=== PATIENT | female | born 1990 | race Caucasian/White ===

== ENCOUNTER 2016-07-15 01:06 | Emergency (ER) | payer OTHER ==
--- NOTE | 2016-07-15 03:10 | ED NURSING NOTES ---
Clinical Report - Nurses [facility] [address] [place] [address] 07/15/2016 1:09 Patient: DOMINIQUE TOWNSEND TRIAGE Triage time 01:12. Acuity: LEVEL 3. Chief Complaint: SPOTTING. --01:17 Dorinda Rose. 01:12 07/15/16. BP: 121/76. HR: 81. RR: 16. O2 saturation: 100%. Temp: 98.7 F. Pain level now: 0/10. --01:17 Dorinad Rose. Weight: 55.3 kg. Height/Length: 64 inches. BMI: 20.9. --01:16 Stefan Rose.N. Medications Vitamins Oral. --01:14 Gemini RoseN. Allergies Sulfa Antibiotics. --01:15 Dorinda Rose. History Arrived by private vehicle. Historian: patient. Accompanied by family. This started just prior to arrival. ( pt also complains of lower back pain). Treatment EDITOR AT LARGE: None. PAST MEDICAL HX: Immunizations: up-to-date. Currently : May 31. OB history: G 3; P 2. SOCIAL HX: Smoker- current status unknown. No alcohol use or drug use. No infectious disease exposure. FALL RISK ASSESSMENT: Fall risk assessment completed. No fall risk identified. NUTRITIONAL RISK ASSESSMENT: The nutritional risk assessment revealed no deficiencies. FUNCTIONAL ASSESSMENT: Functional assessment: no impairments noted. LEARNING NEEDS ASSESSMENT: The learning needs assessment revealed no barriers. SKIN INTEGRITY ASSESSMENT: Skin integrity risk assessment completed. No skin integrity risk identified. --01:17 Dorinda Rose. PROBLEMS: Reflux. --01:15 Gemini RoseN. ADDITIONAL SURGERIES: no known surgeries. Interventions ID band on patient. To treatment room. --01:17 Dorinda Rose. PHYSICAL ASSESSMENT GENERAL / NEURO / PSYCH: Alert. Oriented X 4. Appears in no acute distress. HEENT: Mucous membranes are pink. RESPIRATORY: Respirations not labored. Breath sounds within normal limits. CVS: Normal heart rate and rhythm. Capillary refill less than 2 seconds. GI / : Abdomen soft and nontender. Bowel sounds within normal limits. Vaginal bleeding present. EXTREMITIES: No lower extremity edema. SKIN: Skin is warm and dry. --01:17 Christine Rose NURSING PROGRESS NOTES 01:29 07/15/2016 Site #1 started via IV in the right antecubital space with an 20g angiocath, with aseptic technique and good blood return; one attempt. Blood drawn: rainbow set. Labeled in the presence of the patient and sent to the lab. Saline lock flushed. --01:29 Christine Rose The initial plan of care for this patient has been created This plan of care was discussed with the patient. Patient gowned. Warming measures: blanket applied. Reassurance given to the patient. PELVIC EXAM: Pelvic exam performed by ED physician. Assisted by one nurse. Preparation: pelvic tray and culture medium; patient placed in lithotomy position. Procedure: speculum and bimanual exam. Light amount of bright red vaginal bleeding noted. Specimens collected and sent to lab: GC, chlamydia and wet prep. No genital lesions noted. No rectal exam performed. Status post-procedure: she was stable and no complications were noted. Total time of assist / procedure: 15 minutes. Two patient identifiers checked. Call light placed in reach. Side rails up x 2. Bed placed in lowest position. Brakes of bed on. --01:40 Wally Aden R.N. ( Ultrasound at bedside.). --02:40 Wally Aden R.N. DISPOSITION / DISCHARGE 03:17 07/15/2016 Site #1 removed upon discharge. Catheter intact. Bandaid applied. --03:17 Christine Rose Departure time: 03:19. Condition at departure: stable. No learning barriers present. Discharge instructions provided and reviewed with the patient. Reviewed warnings. Reviewed medication(s) side effects, precautions, dosing and course information. Prescription(s) given to the patient. Treatments reviewed. Reviewed referrals. Follow up contact number. Patient verbalized understanding. Written instructions provided in Faroese. No diet instructions, activity restrictions or stop smoking instructions. No work note given or school note given. The patient was discharged by the physician. She was discharged home and accompanied by child nutrition director. She left the Emergency Department ambulatory and via private vehicle. Information Systems Project Manager driving. FALL RISK ASSESSMENT: Fall risk assessment completed. No fall risk identified. --03:20 Christine Rose 03:17 07/15/16. BP: 123/78. HR: 88. RR: 20. O2 saturation: 99%. Temp: 98.6 F. Pain level now: 0/10. --03:20 Christine Rose Locked/Released at 07/15/2016 3:20 by Christine Rose
--- NOTE | 2016-07-15 03:10 | ED CLINICAL REPORT ---
Clinical Report - Physicians/Mid Levels [facility] [address] [place] [place] [address] 07/15/2016 1:09 Patient: DOMINIQUE TOWNSEND Time Seen: 0112. Arrived- By private vehicle. HISTORY OF PRESENT ILLNESS Chief Complaint: VAGINAL BLEEDING. This started today. She has had vaginal bleeding. Is still present. It was abrupt in onset and has been constant but is not gone now. No pelvic pain, complaint of leakage of fluid or vaginal discharge. Gestational age is weeks, (5 weeks). (). Similar symptoms previously: None. Recent medical care: Not recently seen/assessed. REVIEW OF SYSTEMS No skin rash. All systems otherwise negative, except as recorded above. PAST HISTORY See nurses notes. SOCIAL HISTORY Never smoker. No alcohol use or drug use. No recent travel. Is a local resident. FAMILY HISTORY (no family history of bleeding problems). ADDITIONAL NOTES The nursing notes have been reviewed. PHYSICAL EXAM Vital Signs: 07/15/2016 01:12 BP: 121/76. HR: 81. RR: 16. O2 saturation: 100%. Temp: 98.7 F. Pain level now: 0/10. Appearance: Alert. Oriented X3. No acute distress. CVS: Heart sounds normal. Respiratory: No respiratory distress. Breath sounds normal. Chest nontender. Abdomen: Soft and nontender. Bowel sounds normal. No organomegaly. No mass. Pelvic: (Pelvic exam performed with Margie ARTHUR at all times. Exam was remarkable for small amount of dark red blood in the posterior vaginal vault. No active bleeding. No masses. No lesions. Normal-appearing cervix. Cervical os is closed. No cervical motion tenderness. No adnexal tenderness or masses. Normal-appearing external female genitalia.). Skin: Skin warm and dry. Normal skin color. No rash. Normal skin turgor. Extremities: Extremities nontender. No pathologic edema. LABS, X-RAYS, AND EKG Pelvic Sonogram: Adnexa normal. No free fluid. small gestational sac. No other acute findings. No uterine fibroid. The study was independently viewed by me and interpreted contemporaneously by me. Laboratory Tests: UA-Culture if indicated: (TIESHA: 07/15/2016 01:13) ( MsgRcvd 07/15/2016 01:40) Final results Test Result Flag Units (Reference) URINE COLOR YELLOW URINE APPEARANCE SLIGHTLY HAZY URINE GLUCOSE NEGATIVE (NEGATIVE) URINE BILIRUBIN NEGATIVE (NEGATIVE) URINE KETONE NEGATIVE (NEGATIVE) URINE SPECIFIC GRAVITY 1.025 (1.010-1.030) URINE PH 6.0 (5.0-8.0) URINE PROTEIN NEGATIVE (NEGATIVE) URINE UROBILINOGEN 0.2 EU/dL (0.2-1.0) URINE NITRITE NEGATIVE (NEGATIVE) URINE BLOOD 3+ (NEGATIVE) URINE LEUK ESTERASE NEGATIVE (NEGATIVE) URINE RBC 5-10 rbc/hpf (0-1) URINE WBC 1-3 wbc/hpf (0-1) URINE EPITHELIAL CELLS 1-3 EPI/hpf (0-5) URINE BACTERIA TRACE (<1+) (NONE SEEN) URINE COMMENT CULT NOT INDICATED URINE CULTURES ARE SET-UP BASED ON THE FOLLOWING CRITERIA:POSITIVE NITRITEPOSITIVE LEUKOCYTE ESTERASEGREATER THAN 10 WHITE BLOOD CELLSMODERATE (2+) OR GREATER BACTERIA CBC w Diff: (TIESHA: 07/15/2016 01:28) ( [facility] 07/15[place] 01:32) Final results Test Result Flag Units (Reference) WHITE BLOOD COUNT 13.5 H K/uL (4.5-11.5) RED BLOOD COUNT 4.30 M/uL (4.00-5.20) HEMOGLOBIN 13.1 gm/dL (12.0-16.0) HEMATOCRIT 39.2 % (36.0-46.0) MEAN CELL VOLUME 91 fL (80-100) MEAN CORPUSCULAR HGB 31 pg (26-34) MEAN CORPUSCULAR HGB CONC 34 g/dL (31-37) RED CELL DISTRIBUTION WIDTH 13.1 % (11.6-14.8) PLATELET COUNT 245 K/uL (150-400) NEUTROPHIL % 55.0 % (50-75) LYMPH % 35.3 % (25-40) MONO % 7.3 % (3-14) EOSINOPHIL % 2.0 % (0-4) BASOPHIL % 0.4 % (0-2) CMP: (TIESHA: 07/15/2016 01:28) ( MsgRcvd 07/15/2016 01:56) Final results Test Result Flag Units (Reference) GLUCOSE 95 mg/dL (70-110) BUN 11 mg/dL (7-18) CREATININE 0.8 mg/dL (0.6-1.3) Estimated GFR >60 mL/min Estimated GFR- >60 mL/min Note: Persistent reduction over 3 months in eGFR<60 mL/min/1.73 m2 defines CKD. Patients with eGFR values>=60 mL/min/1.73 m2 may also have CKD if evidence ofpersistent proteinuria. Additional information may be foundat www.kidney.org. SODIUM 140 mmol/L (136-145) POTASSIUM 3.9 mmol/L (3.5-5.1) CHLORIDE 105 mmol/L (98-107) CARBON DIOXIDE 30 mmol/L (21-32) CALCIUM 9.2 mg/dL (8.5-10.1) TOTAL PROTEIN 7.3 g/dL (6.4-8.2) ALBUMIN 3.9 g/dL (3.3-5.0) BILIRUBIN, TOTAL 0.2 mg/dL (0.0-1.0) ALKALINE PHOSPHATASE 51 U/L (46-116) AST (SGOT) 19 U/L (15-37) ALT (SGPT) 27 U/L (12-78) BETA HCG, QUANTITATIVE 742 mIU/mL REFERENCE RANGE:Adult Males: <2 mIU/mLNon- Females: <6 mIU/mL Females:Approximate Approximate hCGGestational Age Range (mIU/mL) 0-1 week 0-501-2 weeks 40-3002-3 weeks 100-83280-5 weeks 500-54282-7 months 5,000-200,0002-3 months 10,000-100,0002nd trimester 3,000-50,0003rd trimester 1,000-50,000 Wet Prep: (TIESHA: 07/15/2016 01:39) ( [facility] 07/15/2016 02:06) Final results SPECIMEN DESCRIPTION: MUCUS, DARK BLOOD Test Result Flag Units (Reference) WET MOUNT CLUE CELLS:: NONE EPITHELIAL CELLS: FEW -- SOURCE?: VAGINAL WHITE BLOOD CELLS: RARE TRICHOMONAS:: NONE -- YEAST:: NONE Type & Rh: (TIESHA: 07/15/2016 01:28) ( MsgRcvd 07/15/2016 01:55) Final results Test Result Flag Units (Reference) PATIENT BLOOD TYPE A Positive . PROGRESS AND PROCEDURES Course of Care: The patient is a pleasant 25-year-old female presenting for evaluation of abnormal vaginal bleeding. Patient reports that she has a positive test recently. Patient has not been able to follow up with the EVENT EXECUTIVE yet. Patient reports vaginal bleeding today. No other acute abnormalities noted. No pain. Examination is remarkable for vaginal bleeding. Studies have been ordered. Patient is agreeable to treatment plan. patient wishes to be at this time. And wants to carry on with the . Patient's laboratory results and ultrasound results are noted for the findings above. At this time differential diagnosis includes threatened versus inevitable . Unable to see pole or any significant findings on examination. Patient without adnexal tenderness or adnexal masses. Low suspicion for ectopic at this time. I discussion patient in regards to ectopic and for warning signs. Also discussed with patient the chance of a spontaneous jesus potential normal . Patient is to follow-up with her EVENT EXECUTIVE for further management and evaluation of her . Patient had became tearful whenI had informed the patient of the potential for spontaneous . Urged patient to follow up with her EVENT EXECUTIVE for further management and all of ultrasound as well as repeat beta hCG. Patient and patient's significant other had expressed understanding of these instructions. And the buttocks provided for urinary tract infection. All questions have been answered. The patient expressed understanding of these instructions and was agreeable to them. Do not feel patient needs be admitted to the hospital or require further emergency department workup/evaluation. Disposition: Discharged. Condition: good. CLINICAL IMPRESSION 07/15/2016 01:12 BP: 121/76. HR: 81. RR: 16. O2 saturation: 100%. Temp: 98.7 F. Pain level now: 0/10. Blood pressure normal. Oxygen saturation normal. Acute urinary tract infection. Complete spontaneous (acute). Rh-immunoglobulin (Rhogam) not adminstered because not needed. INSTRUCTIONS Warnings: GENERAL WARNINGS: Return or contact your physician immediately if your condition worsens or changes unexpectedly, if not improving as expected, or if other problems arise. Specifically return if pain, vomiting, bleeding, breathing difficulty or fever. Your Current Medications: CONTINUE TAKING THE FOLLOWING MEDICATIONS: Vitamins Oral. Prescription Medications: Cephalexin 500 mg: take 1 capsule orally every 8 hours for 5 days. No refill. (disp 15 caps) Percocet 5 mg/325 mg: take 1 tablet orally every 6 hours as needed for pain. Dispense twelve (12). No refill. Substitution is permissible. Follow-up: Return to the emergency department as needed. Follow up with a specialist Your EVENT EXECUTIVE in three days. Reason for referral: recheck today's concerns. Summary of care provided to patient via paper. Follow up with your doctor in three days. Reason for referral: recheck today's concerns. Summary of care provided to patient via paper. Screening today revealed the patient's blood pressure to be in the normal range. The patient should follow up with a primary care provider for blood pressure management. Understanding of the discharge instructions verbalized by patient. (Electronically signed by Mike Peralta Dr. 07/16/2016 8:10)
--- NOTE | 2016-07-15 03:10 | ED ORDER SUMMARY ---
..... Patient: DOMINIQUE TOWNSEND B OrderSheet [facility] VisitID: [id number] [address] [place] [address] 25y, F Registration Date/Time: 07/15/2016 ORDER SHEET Weight: 55.3 kg Allergies: Sulfa Antibiotics GENERAL ORDERS: Wet Prep (Vaginal) (mucus, dark blood) Urgent (01:07/15/2016 Srinath Olguin) (Ack 1:24 AMcQuoid ER Tech1) (1:38 JDeElena R.N.) US OB 1st Trimester w Transvag (May 31, 2015) Urgent (01:07/15/2016 Srinath Olguin) (Ack 1:24 AMcQuoid ER Tech1) (3:20 TBowen R.N.) CBC w Diff Urgent (:07/15/2016 Srinath Olguin) (Ack 1:24 AMcQuoid ER Tech1) (1:29 TBowen R.N.) CMP Urgent (01:07/15/2016 Srinath Olguin) (Ack 1:24 AMcQuoid ER Tech1) (1:29 TBowen R.N.) UA-Culture if indicated Urgent (:07/15/2016 Srinath Olguin) (Ack 1:24 AMcQuoid ER Tech1) (1:29 TBowen R.N.) Type & Rh Urgent (:07/15/2016 Srinath Olguin) (Ack 1:24 AMcQuoid ER Tech1) (1:29 TBowen R.N.) Serum Quantitative Urgent (01:07/15/2016 Srinath Olguin) (Ack 1:24 AMcQuoid ER Tech1) (1:29 TBowen R.N.) Pulse oximeter (:07/15/2016 Srinath Olguin) (Ack 1:24 AMcQuoid ER Tech1) (1:29 TBowen R.N.) MEDICATION ORDERS: IV FLUIDS: IV Saline Lock (:07/15/2016 Srinath Olguin) (1:29 TBowen R.N.) ORDER SHEET NOTES: [Electronically signed by Margie Marrero R.N. (03:20 07/15/2016)] [Electronically signed by Mike Peralta Dr. (08:10 07/16/2016)] [Electronically locked/signed by Margie Marrero R.N. (:07/15/2016)]
--- NOTE | 2016-07-15 03:10 | ED NURSING NOTES ---
Clinical Report - Nurses [facility] [address] [place] [address] 07/15/2016 1:09 Patient: DOMINIQUE TOWNSEND TRIAGE Triage time 01:12. Acuity: LEVEL 3. Chief Complaint: SPOTTING. --01:17 Dorinda Rose. 01:12 07/15/16. BP: 121/76. HR: 81. RR: 16. O2 saturation: 100%. Temp: 98.7 F. Pain level now: 0/10. --01:17 Dorinda Rose. Weight: 55.3 kg. Height/Length: 64 inches. BMI: 20.9. --01:16 Stefan Roes.N. Medications Vitamins Oral. --01:14 Gemini RoseN. Allergies Sulfa Antibiotics. --01:15 Dorinda Rose. History Arrived by private vehicle. Historian: patient. Accompanied by family. This started just prior to arrival. ( pt also complains of lower back pain). Treatment LABORATORY ASST: None. PAST MEDICAL HX: Immunizations: up-to-date. Currently : May 31. OB history: G 3; P 2. SOCIAL HX: Smoker- current status unknown. No alcohol use or drug use. No infectious disease exposure. FALL RISK ASSESSMENT: Fall risk assessment completed. No fall risk identified. NUTRITIONAL RISK ASSESSMENT: The nutritional risk assessment revealed no deficiencies. FUNCTIONAL ASSESSMENT: Functional assessment: no impairments noted. LEARNING NEEDS ASSESSMENT: The learning needs assessment revealed no barriers. SKIN INTEGRITY ASSESSMENT: Skin integrity risk assessment completed. No skin integrity risk identified. --01:17 Dorinda Rose. PROBLEMS: Reflux. --01:15 Gemini RoseN. ADDITIONAL SURGERIES: no known surgeries. Interventions ID band on patient. To treatment room. --01:17 Dorinda Rose. PHYSICAL ASSESSMENT GENERAL / NEURO / PSYCH: Alert. Oriented X 4. Appears in no acute distress. HEENT: Mucous membranes are pink. RESPIRATORY: Respirations not labored. Breath sounds within normal limits. CVS: Normal heart rate and rhythm. Capillary refill less than 2 seconds. GI / : Abdomen soft and nontender. Bowel sounds within normal limits. Vaginal bleeding present. EXTREMITIES: No lower extremity edema. SKIN: Skin is warm and dry. --01:17 Christine Rose NURSING PROGRESS NOTES 01:29 07/15/2016 Site #1 started via IV in the right antecubital space with an 20g angiocath, with aseptic technique and good blood return; one attempt. Blood drawn: rainbow set. Labeled in the presence of the patient and sent to the lab. Saline lock flushed. --01:29 Christine Rose The initial plan of care for this patient has been created This plan of care was discussed with the patient. Patient gowned. Warming measures: blanket applied. Reassurance given to the patient. PELVIC EXAM: Pelvic exam performed by ED physician. Assisted by one nurse. Preparation: pelvic tray and culture medium; patient placed in lithotomy position. Procedure: speculum and bimanual exam. Light amount of bright red vaginal bleeding noted. Specimens collected and sent to lab: GC, chlamydia and wet prep. No genital lesions noted. No rectal exam performed. Status post-procedure: she was stable and no complications were noted. Total time of assist / procedure: 15 minutes. Two patient identifiers checked. Call light placed in reach. Side rails up x 2. Bed placed in lowest position. Brakes of bed on. --01:40 Wally Aden R.N. ( Ultrasound at bedside.). --02:40 Wally Aden R.N. DISPOSITION / DISCHARGE 03:17 07/15/2016 Site #1 removed upon discharge. Catheter intact. Bandaid applied. --03:17 Christine Rose Departure time: 03:19. Condition at departure: stable. No learning barriers present. Discharge instructions provided and reviewed with the patient. Reviewed warnings. Reviewed medication(s) side effects, precautions, dosing and course information. Prescription(s) given to the patient. Treatments reviewed. Reviewed referrals. Follow up contact number. Patient verbalized understanding. Written instructions provided in Chinese. No diet instructions, activity restrictions or stop smoking instructions. No work note given or school note given. The patient was discharged by the physician. She was discharged home and accompanied by featheredge machine operator. She left the Emergency Department ambulatory and via private vehicle. Catering Operations Manager driving. FALL RISK ASSESSMENT: Fall risk assessment completed. No fall risk identified. --03:20 Christine Rose 03:17 07/15/16. BP: 123/78. HR: 88. RR: 20. O2 saturation: 99%. Temp: 98.6 F. Pain level now: 0/10. --03:20 Christine Rose Locked/Released at 07/15/2016 3:20 by Christine Rose
--- NOTE | 2016-07-15 03:10 | ED CLINICAL REPORT ---
Clinical Report - Physicians/Mid Levels [facility] [address] [place] [address] 07/15/2016 1:09 Patient: DOMINIQUE TOWNSEND Time Seen: 0112. Arrived- By private vehicle. HISTORY OF PRESENT ILLNESS Chief Complaint: VAGINAL BLEEDING. This started today. She has had vaginal bleeding. Is still present. It was abrupt in onset and has been constant but is not gone now. No pelvic pain, complaint of leakage of fluid or vaginal discharge. Gestational age is weeks, (5 weeks). (). Similar symptoms previously: None. Recent medical care: Not recently seen/assessed. REVIEW OF SYSTEMS No skin rash. All systems otherwise negative, except as recorded above. PAST HISTORY See nurses notes. SOCIAL HISTORY Never smoker. No alcohol use or drug use. No recent travel. Is a local resident. FAMILY HISTORY (no family history of bleeding problems). ADDITIONAL NOTES The nursing notes have been reviewed. PHYSICAL EXAM Vital Signs: 07/15/2016 01:12 BP: 121/76. HR: 81. RR: 16. O2 saturation: 100%. Temp: 98.7 F. Pain level now: 0/10. Appearance: Alert. Oriented X3. No acute distress. CVS: Heart sounds normal. Respiratory: No respiratory distress. Breath sounds normal. Chest nontender. Abdomen: Soft and nontender. Bowel sounds normal. No organomegaly. No mass. Pelvic: (Pelvic exam performed with Margie ATRHUR at all times. Exam was remarkable for small amount of dark red blood in the posterior vaginal vault. No active bleeding. No masses. No lesions. Normal-appearing cervix. Cervical os is closed. No cervical motion tenderness. No adnexal tenderness or masses. Normal-appearing external female genitalia.). Skin: Skin warm and dry. Normal skin color. No rash. Normal skin turgor. Extremities: Extremities nontender. No pathologic edema. LABS, X-RAYS, AND EKG Pelvic Sonogram: Adnexa normal. No free fluid. small gestational sac. No other acute findings. No uterine fibroid. The study was independently viewed by me and interpreted contemporaneously by me. Laboratory Tests: UA-Culture if indicated: (TIESHA: 07/15/2016 01:13) ( MsgRcvd 07/15/2016 01:40) Final results Test Result Flag Units (Reference) URINE COLOR YELLOW URINE APPEARANCE SLIGHTLY HAZY URINE GLUCOSE NEGATIVE (NEGATIVE) URINE BILIRUBIN NEGATIVE (NEGATIVE) URINE KETONE NEGATIVE (NEGATIVE) URINE SPECIFIC GRAVITY 1.025 (1.010-1.030) URINE PH 6.0 (5.0-8.0) URINE PROTEIN NEGATIVE (NEGATIVE) URINE UROBILINOGEN 0.2 EU/dL (0.2-1.0) URINE NITRITE NEGATIVE (NEGATIVE) URINE BLOOD 3+ (NEGATIVE) URINE LEUK ESTERASE NEGATIVE (NEGATIVE) URINE RBC 5-10 rbc/hpf (0-1) URINE WBC 1-3 wbc/hpf (0-1) URINE EPITHELIAL CELLS 1-3 EPI/hpf (0-5) URINE BACTERIA TRACE (<1+) (NONE SEEN) URINE COMMENT CULT NOT INDICATED URINE CULTURES ARE SET-UP BASED ON THE FOLLOWING CRITERIA:POSITIVE NITRITEPOSITIVE LEUKOCYTE ESTERASEGREATER THAN 10 WHITE BLOOD CELLSMODERATE (2+) OR GREATER BACTERIA CBC w Diff: (TIESHA: 07/15/2016 01:28) ( [facility] [place]) Final results Test Result Flag Units (Reference) WHITE BLOOD COUNT 13.5 H K/uL (4.5-11.5) RED BLOOD COUNT 4.30 M/uL (4.00-5.20) HEMOGLOBIN 13.1 gm/dL (12.0-16.0) HEMATOCRIT 39.2 % (36.0-46.0) MEAN CELL VOLUME 91 fL (80-100) MEAN CORPUSCULAR HGB 31 pg (26-34) MEAN CORPUSCULAR HGB CONC 34 g/dL (31-37) RED CELL DISTRIBUTION WIDTH 13.1 % (11.6-14.8) PLATELET COUNT 245 K/uL (150-400) NEUTROPHIL % 55.0 % (50-75) LYMPH % 35.3 % (25-40) MONO % 7.3 % (3-14) EOSINOPHIL % 2.0 % (0-4) BASOPHIL % 0.4 % (0-2) CMP: (TIESHA: 07/15/2016 01:28) ( MsgRcvd 07/15/2016 01:56) Final results Test Result Flag Units (Reference) GLUCOSE 95 mg/dL (70-110) BUN 11 mg/dL (7-18) CREATININE 0.8 mg/dL (0.6-1.3) Estimated GFR >60 mL/min Estimated GFR- >60 mL/min Note: Persistent reduction over 3 months in eGFR<60 mL/min/1.73 m2 defines CKD. Patients with eGFR values>=60 mL/min/1.73 m2 may also have CKD if evidence ofpersistent proteinuria. Additional information may be foundat www.kidney.org. SODIUM 140 mmol/L (136-145) POTASSIUM 3.9 mmol/L (3.5-5.1) CHLORIDE 105 mmol/L (98-107) CARBON DIOXIDE 30 mmol/L (21-32) CALCIUM 9.2 mg/dL (8.5-10.1) TOTAL PROTEIN 7.3 g/dL (6.4-8.2) ALBUMIN 3.9 g/dL (3.3-5.0) BILIRUBIN, TOTAL 0.2 mg/dL (0.0-1.0) ALKALINE PHOSPHATASE 51 U/L (46-116) AST (SGOT) 19 U/L (15-37) ALT (SGPT) 27 U/L (12-78) BETA HCG, QUANTITATIVE 742 mIU/mL REFERENCE RANGE:Adult Males: <2 mIU/mLNon- Females: <6 mIU/mL Females:Approximate Approximate hCGGestational Age Range (mIU/mL) 0-1 week 0-501-2 weeks 40-3002-3 weeks 100-19750-9 weeks 500-44846-5 months 5,000-200,0002-3 months 10,000-100,0002nd trimester 3,000-50,0003rd trimester 1,000-50,000 Wet Prep: (TIESHA: 07/15/2016 01:39) ( [facility] [place] 02:06) Final results SPECIMEN DESCRIPTION: MUCUS, DARK BLOOD Test Result Flag Units (Reference) WET MOUNT CLUE CELLS:: NONE EPITHELIAL CELLS: FEW -- SOURCE?: VAGINAL WHITE BLOOD CELLS: RARE TRICHOMONAS:: NONE -- YEAST:: NONE Type & Rh: (TIESHA: 07/15/2016 01:28) ( MsgRcvd 07/15/2016 01:55) Final results Test Result Flag Units (Reference) PATIENT BLOOD TYPE A Positive . PROGRESS AND PROCEDURES Course of Care: The patient is a pleasant 25-year-old female presenting for evaluation of abnormal vaginal bleeding. Patient reports that she has a positive test recently. Patient has not been able to follow up with the [facility] [employer] [facility] yet. Patient reports vaginal bleeding today. No other acute abnormalities noted. No pain. Examination is remarkable for vaginal bleeding. Studies have been ordered. Patient is agreeable to treatment plan. patient wishes to be at this time. And wants to carry on with the . Patient's laboratory results and ultrasound results are noted for the findings above. At this time differential diagnosis includes threatened versus inevitable . Unable to see pole or any significant findings on examination. Patient without adnexal tenderness or adnexal masses. Low suspicion for ectopic at this time. I discussion patient in regards to ectopic and for warning signs. Also discussed with patient the chance of a spontaneous jesus potential normal . Patient is to follow-up with her [facility] [employer] for further management and evaluation of her . Patient had became tearful whenI had informed the patient of the potential for spontaneous . Urged patient to follow up with her [employer] for further management and all of ultrasound as well as repeat beta hCG. Patient and patient's significant other had expressed understanding of these instructions. And the buttocks provided for urinary tract infection. All questions have been answered. The patient expressed understanding of these instructions and was agreeable to them. Do not feel patient needs be admitted to the hospital or require further emergency department workup/evaluation. Disposition: Discharged. Condition: good. CLINICAL IMPRESSION 07/15/2016 01:12 BP: 121/76. HR: 81. RR: 16. O2 saturation: 100%. Temp: 98.7 F. Pain level now: 0/10. Blood pressure normal. Oxygen saturation normal. Acute urinary tract infection. Complete spontaneous (acute). Rh-immunoglobulin (Rhogam) not adminstered because not needed. INSTRUCTIONS Warnings: GENERAL WARNINGS: Return or contact your physician immediately if your condition worsens or changes unexpectedly, if not improving as expected, or if other problems arise. Specifically return if pain, vomiting, bleeding, breathing difficulty or fever. Your Current Medications: CONTINUE TAKING THE FOLLOWING MEDICATIONS: Vitamins Oral. Prescription Medications: Cephalexin 500 mg: take 1 capsule orally every 8 hours for 5 days. No refill. (disp 15 caps) Percocet 5 mg/325 mg: take 1 tablet orally every 6 hours as needed for pain. Dispense twelve (12). No refill. Substitution is permissible. Follow-up: Return to the emergency department as needed. Follow up with a specialist Your [employer] in three days. Reason for referral: recheck today's concerns. Summary of care provided to patient via paper. Follow up with your doctor in three days. Reason for referral: recheck today's concerns. Summary of care provided to patient via paper. Screening today revealed the patient's blood pressure to be in the normal range. The patient should follow up with a primary care provider for blood pressure management. Understanding of the discharge instructions verbalized by patient. (Electronically signed by Mike Peralta Dr. 07/16/2016 8:10)
--- NOTE | 2016-07-15 03:10 | ED ORDER SUMMARY ---
..... Patient: DOMINIQUE TOWNSEND B OrderSheet [facility] VisitID: [id number] [address] [place] [address] 25y, F Registration Date/Time: 07/15/2016 ORDER SHEET Weight: 55.3 kg Allergies: Sulfa Antibiotics GENERAL ORDERS: Wet Prep (Vaginal) (mucus, dark blood) Urgent (01:07/15/2016 Srinath Olguin) (Ack 1:24 AMcQuoid ER Tech1) (1:38 JDeElena R.N.) US OB 1st Trimester w Transvag (May 31, 2015) Urgent (01:07/15/2016 Srinath Olguin) (Ack 1:24 AMcQuoid ER Tech1) (3:20 TBowen R.N.) CBC w Diff Urgent (:07/15/2016 Srinath Olguin) (Ack 1:24 AMcQuoid ER Tech1) (1:29 TBowen R.N.) CMP Urgent (01:07/15/2016 Srinath Olguin) (Ack 1:24 AMcQuoid ER Tech1) (1:29 TBowen R.N.) UA-Culture if indicated Urgent (:07/15/2016 Srinath Olguin) (Ack 1:24 AMcQuoid ER Tech1) (1:29 TBowen R.N.) Type & Rh Urgent (:07/15/2016 Srinath Olguin) (Ack 1:24 AMcQuoid ER Tech1) (1:29 TBowen R.N.) Serum Quantitative Urgent (01:07/15/2016 Srinath Olguin) (Ack 1:24 AMcQuoid ER Tech1) (1:29 TBowen R.N.) Pulse oximeter (:07/15/2016 Srinath Olguin) (Ack 1:24 AMcQuoid ER Tech1) (1:29 TBowen R.N.) MEDICATION ORDERS: IV FLUIDS: IV Saline Lock (:07/15/2016 Srinath Olguin) (1:29 TBowen R.N.) ORDER SHEET NOTES: [Electronically signed by Margie Marrero R.N. (03:20 07/15/2016)] [Electronically signed by Mike Peralta Dr. (08:10 07/16/2016)] [Electronically locked/signed by Margie Marrero R.N. (:07/15/2016)]
--- NOTE | 2016-07-15 06:59 | DIAGNOSTIC IMAGING REPORT ---
PROCEDURE: US OB 1ST TRIMESTER W/TRANSVAG INDICATION: POSSIBLE ECTOPIC TECHNIQUE: Liz scale, color, and spectral Doppler transabdominal and endovaginal sonographic images of the first trimester gravid uterus were obtained. COMPARISON: None. FINDINGS: TRANSABDOMINAL SCANS: Anteverted uterus. Small cystic structure in the endometrial canal. Endometrium measures 17.2 mm. TRANSVAGINAL SCANS: Uterus measures 9.3 x 5 x 5 cm. Small cystic structure in the endometrium measures 4.6 mm, 6 weeks 3 days. LOYDA 03/07/2017. Normal right ovary measures 2.3 x 2.4 x 2 cm. Left ovary measures 2 x 3.9 x 2.6 cm with a 1.0 cm corpus luteum cyst. Trace free fluid the pelvis. No evidence of an adnexal mass. IMPRESSION: 1. 1 cm cystic structure in the endometrial canal suggestive of an early intrauterine (6 weeks 3 days). Recommend follow-up Beta hCG and ultrasound.
--- NOTE | 2016-07-16 08:10 | ED MAR SUMMARY ---
..... Medication Administration Record [facility] [address] [place], [place] [id number] Patient: DOMINIQUE TOWNSEND Visit ID: [id number] 25y, F Weight: 55.3 kg Height/Length: 64 in BMI: 20.9 ALLERGIES: Sulfa Antibiotics
--- NOTE | 2016-07-16 08:10 | ED MED RECONCILIATION SUMMARY ---
Patient: DOMINIQUE TOWNSEND Medication Reconciliation Report [facility] VisitID: [id number] [address] [place] [address] 25y, F Registration Date/Time: 07/15/2016 Weight: 55.3 kg Height/Length: 64 in. BMI: 20.9 ALLERGIES: Sulfa Antibiotics The patient's Home Medications are listed below: CONTINUE TAKING THE FOLLOWING MEDICATIONS: Vitamins Oral The source(s) of the original Home Medication information: Not obtained. The following Medications were given to the patient in the Emergency Department: None. The following Medications were prescribed to the patient: Cephalexin 500 mg: take 1 capsule orally every 8 hours for 5 days. No refill.(disp 15 caps) -- Mike Peralta Dr. Percocet 5 mg/325 mg: take 1 tablet orally every 6 hours as needed for pain. Dispense twelve (12). No refill. Substitution is permissible. -- Mike Peralta Dr.
--- NOTE | 2016-07-16 08:10 | ED MAR SUMMARY ---
..... Medication Administration Record [facility] [address] [place], [place] [id number] Patient: DOMINIQUE TOWNSEND Visit ID: [id number] 25y, F Weight: 55.3 kg Height/Length: 64 in BMI: 20.9 ALLERGIES: Sulfa Antibiotics
--- NOTE | 2016-07-16 08:10 | ED DISCHARGE INSTRUCTIONS ---
Patient: DOMINIQUE TOWNSEND General Instructions [facility] VisitID: [id number] [place] [address] 25y, F Registration Date/Time: 07/15/2016 07/15/2016 01:12 BP: 121/76. HR: 81. RR: 16. O2 saturation: 100%. Temp: 98.7 F. Pain level now: 0/10. Blood pressure normal. Oxygen saturation normal. Acute urinary tract infection. Complete spontaneous (acute). Rh-immunoglobulin (Rhogam) not adminstered because not needed. INSTRUCTIONS Warnings: GENERAL WARNINGS: Return or contact your physician immediately if your condition worsens or changes unexpectedly, if not improving as expected, or if other problems arise. Specifically return if pain, vomiting, bleeding, breathing difficulty or fever. Your Current Medications: CONTINUE TAKING THE FOLLOWING MEDICATIONS: Vitamins Oral. Prescription Medications: Cephalexin 500 mg: take 1 capsule orally every 8 hours for 5 days. No refill. (disp 15 caps) Percocet 5 mg/325 mg: take 1 tablet orally every 6 hours as needed for pain. Dispense twelve (12). No refill. Substitution is permissible. Follow-up: Return to the emergency department as needed. Follow up with a specialist Your MD PSYCHIAT[facility] in three days. Reason for referral: recheck today's concerns. Summary of care provided to patient via paper. Follow up with your doctor in three days. Reason for referral: recheck today's concerns. Summary of care provided to patient via paper. Screening today revealed the patient's blood pressure to be in the normal range. The patient should follow up with a primary care provider for blood pressure management. Understanding of the discharge instructions verbalized by patient. ADDITIONAL INFORMATION Bladder Infection,Female (Adult) A bladder infection ("cystitis" or "UTI") usually causes a constant urge to urinate and a burning when passing urine. Urine may be cloudy, smelly or dark. There may be pain in the lower abdomen. A bladder infection occurs when bacteria from the vaginal area enter the bladder opening (urethra). This can occur from sexual intercourse, wearing tight clothing, dehydration and other factors. Home Care: Drink lots of fluids (at least 6-8 glasses a day, unless you must restrict fluids for other medical reasons). This will force the medicine into your urinary system and flush the bacteria out of your body. Avoid sexual intercourse until your symptoms are gone. Avoid caffeine, alcohol and spicy foods. These can irritate the bladder. A bladder infection is treated with antibiotics. You may also be given Pyridium (generic = phenazopyridine) to reduce the burning sensation. This medicine will cause your urine to become a bright orange color. The orange urine may stain clothing. You may wear a pad or panty-liner to protect clothing. Preventing Future Infections: Always wipe from front to back after a bowel movement. Keep the genital area clean and dry. Drink plenty of fluids each day to avoid dehydration. Both sexual partners should wash before intercourse. Urinate right after intercourse to flush out the bladder. Wear cotton underwear and cotton-lined panty hose; avoid tight-fitting pants. If you are on control pills and are having frequent bladder infections, discuss with your doctor. Follow Up: Return to this facility or see your doctor if ALL symptoms are not gone after three days of treatment. Get Prompt Medical Attention if any of the following occur: Fever of 100.4F (38C) or higher, or as directed by your healthcare provider No improvement by the third day of treatment Increasing back or abdominal pain Repeated vomiting; unable to keep medicine down Weakness, dizziness or fainting Vaginal discharge Pain, redness or swelling in the labia (outer vaginal area) Abdominal Pain And Early [R/O Sab, Ectopic: Serial Q-Hcg's] Based on your visit today, we know you are . But, the exact cause of your abdominal (stomach) pain is not certain. Some pain or bleeding may occur in a NORMAL . But pain may also be a sign of a MISCARRIAGE or an ECTOPIC (baby growing in the Fallopian tube instead of the uterus). An ectopic is a very serious condition. It can lead to severe internal bleeding and even . Therefore, further tests are needed to find out the cause of your symptoms. These may include: ULTRASOUND - A pelvic ultrasound can detect a normal as early as 4-5 weeks of age. But, if the ultrasound test does not show the baby inside the uterus, it means that i) you have a normal less than 4 weeks old, ii) you are having or recently had a miscarriage or iii) you have an ectopic . QUANTITATIVE HCG - a test that measures the amount of hormone in your blood. Comparing today's test result to a repeat test in 48 hours shows whether or not you have a normal . LAPAROSCOPY - a surgical procedure where a tube with a light is placed inside the abdomen to look directly at the pelvic organs. This is used when it is not safe to wait 48 hours for blood test results. Important If you do have an ectopic , there is a small chance that the growing fetus can tear the Fallopian tube and cause severe internal bleeding. If this happens, there may be SUDDEN SEVERE LOWER ABDOMINAL PAIN, VAGINAL BLEEDING, WEAKNESS, DIZZINESS and sometimes FAINTING. If any of these symptoms occur: CALL AN AMBULANCE (call 911) or return immediately to the hospital. DO NOT DRIVE YOURSELF. DO NOT GO TO YOUR DOCTOR'S OFFICE OR TO A CLINIC. Home Care: Rest until your next exam. Do not perform any strenuous activity. Eat a light diet with foods that are easy to digest. Avoid sexual intercourse until all symptoms have gone away and you are cleared by your doctor. Follow Up with your doctor or this facility as advised for repeat blood testing. [NOTE: If you had an X-ray or ultrasound test, it will be reviewed by a specialist. You will be notified of any new findings that may affect your care.] Get Prompt Medical Attention if any of the following occur: Sudden or gradual worsening abdominal pain Fainting, dizziness or weakness when standing Heavy vaginal bleeding (soaking one pad an hour for three hours) Vaginal bleeding for more than 5 days Repeated vomiting or diarrhea Pain that moves to the right lower abdomen (stomach) Blood in vomit or bowel movements (dark red or black color) Fever of 100.4F (38C) or higher, or as directed by your healthcare provider Cephalexin Monohydrate Oral tablet What is this medicine? CEPHALEXIN (sef a ROGELIO in) is a cephalosporin antibiotic. It is used to treat certain kinds of bacterial infections It will not work for colds, flu, or other viral infections. How should I use this medicine? Take this medicine by mouth with a full glass of water. Follow the directions on the prescription label. This medicine can be taken with or without food. Take your medicine at regular intervals. Do not take your medicine more often than directed. Take all of your medicine as directed even if you think you are better. Do not skip doses or stop your medicine early. Talk to your pit laborer regarding the use of this medicine in children. While this drug may be prescribed for selected conditions, precautions do apply. What side effects may I notice from receiving this medicine? Side effects that you should report to your doctor or health attending ambulatory care as soon as possible: allergic reactions like skin rash, itching or hives, swelling of the face, lips, or tongue breathing problems pain or trouble passing urine redness, blistering, peeling or loosening of the skin, including inside the mouth severe or watery diarrhea unusually weak or tired yellowing of the eyes, skin Side effects that usually do not require medical attention (report to your doctor or health attending ambulatory care if they continue or are bothersome): gas or heartburn genital or anal irritation headache joint or muscle pain nausea, vomiting What may interact with this medicine? probenecid some other antibiotics What if I miss a dose? If you miss a dose, take it as soon as you can. If it is almost time for your next dose, take only that dose. Do not take double or extra doses. There should be at least 4 to 6 hours between doses. Where should I keep my medicine? Keep out of the reach of children. Store at room temperature between 59 and 86 degrees F (15 and 30 degrees C). Throw away any unused medicine after the expiration date. What should I tell my health care provider before I take this medicine? They need to know if you have any of these conditions: kidney disease stomach or intestine problems, especially colitis an unusual or allergic reaction to cephalexin, other cephalosporins, penicillins, other antibiotics, medicines, foods, dyes or preservatives or trying to get breast-feeding What should I watch for while using this medicine? Tell your doctor or health attending ambulatory care if your symptoms do not begin to improve in a few days. Do not treat diarrhea with over the counter products. Contact your doctor if you have diarrhea that lasts more than 2 days or if it is severe and watery. If you have diabetes, you may get a false-positive result for sugar in your urine. Check with your doctor or health attending ambulatory care. Oxycodone Hydrochloride, Acetaminophen Oral tablet What is this medicine? ACETAMINOPHEN; OXYCODONE (a set a ASAEL cherise fen; ox i KOE done) is a pain reliever. It is used to treat mild to moderate pain. How should I use this medicine? Take this medicine by mouth with a full glass of water. Follow the directions on the prescription label. Take your medicine at regular intervals. Do not take your medicine more often than directed. Talk to your pit laborer regarding the use of this medicine in children. Special care may be needed. Patients over 65 years old may have a stronger reaction and need a smaller dose. What side effects may I notice from receiving this medicine? Side effects that you should report to your doctor or health attending ambulatory care as soon as possible: allergic reactions like skin rash, itching or hives, swelling of the face, lips, or tongue breathing difficulties, wheezing confusion light headedness or fainting spells severe stomach pain yellowing of the skin or the whites of the eyes Side effects that usually do not require medical attention (report to your doctor or health attending ambulatory care if they continue or are bothersome): dizziness drowsiness nausea vomiting What may interact with this medicine? alcohol antihistamines barbiturates like amobarbital, butalbital, butabarbital, methohexital, pentobarbital, phenobarbital, thiopental, and secobarbital benztropine drugs for bladder problems like solifenacin, trospium, oxybutynin, tolterodine, hyoscyamine, and methscopolamine drugs for breathing problems like ipratropium and tiotropium drugs for certain stomach or intestine problems like propantheline, homatropine methylbromide, glycopyrrolate, atropine, belladonna, and dicyclomine general anesthetics like etomidate, ketamine, nitrous oxide, propofol, desflurane, enflurane, halothane, isoflurane, and sevoflurane medicines for depression, anxiety, or psychotic disturbances medicines for sleep muscle relaxants naltrexone narcotic medicines (opiates) for pain phenothiazines like perphenazine, thioridazine, chlorpromazine, mesoridazine, fluphenazine, prochlorperazine, promazine, and trifluoperazine scopolamine tramadol trihexyphenidyl What if I miss a dose? If you miss a dose, take it as soon as you can. If it is almost time for your next dose, take only that dose. Do not take double or extra doses. Where should I keep my medicine? Keep out of the reach of children. This medicine can be abused. Keep your medicine in a safe place to protect it from theft. Do not share this medicine with anyone. Selling or giving away this medicine is dangerous and against the law. Store at room temperature between 20 and 25 degrees C (68 and 77 degrees F). Keep container tightly closed. Protect from light. This medicine may cause accidental overdose and if it is taken by other adults, children, or pets. Flush any unused medicine down the toilet to reduce the chance of harm. Do not use the medicine after the expiration date. What should I tell my health care provider before I take this medicine? They need to know if you have any of these conditions: brain tumor Crohn's disease, inflammatory bowel disease, or ulcerative colitis drink more than 3 alcohol containing drinks per day drug abuse or addiction head injury heart or circulation problems kidney disease or problems going to the bathroom liver disease lung disease, asthma, or breathing problems an unusual or allergic reaction to acetaminophen, oxycodone, other opioid analgesics, other medicines, foods, dyes, or preservatives or trying to get breast-feeding What should I watch for while using this medicine? Tell your doctor or health attending ambulatory care if your pain does not go away, if it gets worse, or if you have new or a different type of pain. You may develop tolerance to the medicine. Tolerance means that you will need a higher dose of the medication for pain relief. Tolerance is normal and is expected if you take this medicine for a long time. Do not suddenly stop taking your medicine because you may develop a severe reaction. Your body becomes used to the medicine. This does NOT mean you are addicted. Addiction is a behavior related to getting and using a drug for a non-medical reason. If you have pain, you have a medical reason to take pain medicine. Your doctor will tell you how much medicine to take. If your doctor wants you to stop the medicine, the dose will be slowly lowered over time to avoid any side effects. You may get drowsy or dizzy. Do not drive, use machinery, or do anything that needs mental alertness until you know how this medicine affects you. Do not stand or sit up quickly, especially if you are an older patient. This reduces the risk of dizzy or fainting spells. Alcohol may interfere with the effect of this medicine. Avoid alcoholic drinks. There are different types of narcotic medicines (opiates) for pain. If you take more than one type at the same time, you may have more side effects. Give your health care provider a list of all medicines you use. Your doctor will tell you how much medicine to take. Do not take more medicine than directed. Call emergency for help if you have problems breathing. The medicine will cause constipation. Try to have a bowel movement at least every 2 to 3 days. If you do not have a bowel movement for 3 days, call your doctor or health attending ambulatory care. Do not take Tylenol (acetaminophen) or medicines that have acetaminophen with this medicine. Too much acetaminophen can be very dangerous. Many nonprescription medicines contain acetaminophen. Always read the labels carefully to avoid taking more acetaminophen. You have been given the following additional information: Bladder Infection, Female (Adult) Abdominal Pain, Early Cephalexin Monohydrate Oral tablet Oxycodone Hydrochloride, Acetaminophen Oral tablet (Electronically signed by Mike Peralta Dr. 07/16/2016 8:10)
--- NOTE | 2016-07-16 08:10 | ED MED RECONCILIATION SUMMARY ---
Patient: DOMINIQUE TOWNSEND Medication Reconciliation Report [facility] VisitID: [id number] [place] [address] 25y, F Registration Date/Time: 07/15/2016 Weight: 55.3 kg Height/Length: 64 in. BMI: 20.9 ALLERGIES: Sulfa Antibiotics The patient's Home Medications are listed below: CONTINUE TAKING THE FOLLOWING MEDICATIONS: Vitamins Oral The source(s) of the original Home Medication information: Not obtained. The following Medications were given to the patient in the Emergency Department: None. The following Medications were prescribed to the patient: Cephalexin 500 mg: take 1 capsule orally every 8 hours for 5 days. No refill.(disp 15 caps) -- Mike Peralta Dr. Percocet 5 mg/325 mg: take 1 tablet orally every 6 hours as needed for pain. Dispense twelve (12). No refill. Substitution is permissible. -- Mike Peralta Dr.
== END 2016-07-15 03:10 | disposition home or self-care (01) ==
LOC: ED SRH 01:06
DX: O23.41 Unspecified infection of urinary tract in pregnancy, first trimester (principal); O03.9 Complete or unspecified spontaneous abortion without complication; Z3A.01 Less than 8 weeks gestation of pregnancy; Z88.2 Allergy status to sulfonamides
CPT/HCPCS: 90001; 90004; 90100; 90155; 90195; 90197; 95059